=== PATIENT | male | born 1995 | race Caucasian/White ===

== ENCOUNTER 2018-03-28 01:48 | Emergency (ER) | payer OTHER ==
--- NOTE | 2018-03-28 02:43 | EDM.PDOC ---
ED HPI GENERAL MEDICAL PROBLEM - General Chief Complaint: Head Injury Stated Complaint: HIT HEAD HARD [id number] Time Seen by Provider: 03/28/18 01:55 Source of Information: Reports: Patient, Family History Limitations: Reports: No Limitations - History of Present Illness INITIAL COMMENTS - FREE TEXT/NARRATIVE: Ed with family reports up to [place] to urinate and "passed out" woke with head against bathtub and arm in toilet. felt sweaty. Next sat to have BM and passed out again. Denies hx of previous events ,brother has frequent fainting episodes. No diabetes hx. No recent URI or GI symptoms, Admits to a couple drinks earlier in day but "shouldn't have any value in what happened". Pain to right parietal area. Right Head Pain Score (Numeric/FACES): 6 - Related Data Allergies Allergy/AdvReac Type Severity Reaction Status Date / Time No Known Allergies Allergy Verified 03/28/18 01:56 Home Meds: Home Meds . [No Known Home Meds] 03/28/18 [History] Past Medical History - Past Health History Medical/Surgical History: Denies Medical/Surgical History Social & Family History - Tobacco Use Smoking Status *Q: Never Smoker Second Hand Smoke Exposure: No - Recreational Drug Use Recreational Drug Use: No ED ROS GENERAL - Review of Systems Review Of Systems: ROS reveals no pertinent complaints other than HPI. ED EXAM, HEAD INJURY - Physical Exam Exam: See Below Exam Limited By: No Limitations General Appearance: Alert, Mild Distress Head: Normocephalic, Scalp Tenderness. No: Scalp Abrasions, Scalp Hematoma, Lim's Sign, Raccoon Eyes Nexus Criteria: Posterior, Midline Cervical Tenderness. No: Evidence of Intoxication, Altered Level of Consciousness, Focal Neurological Deficit, Painful Distraction Injuries Eyes: Bilateral Eye: EOMI, PERRL Ears: Normal External Exam, Normal Canal, Normal TMs Nose: Normal Inspection, Normal Mucousa Throat/Mouth: Normal Inspection, Normal Lips, Normal Oropharynx Neck: Non-Tender, Full Range of Motion Respiratory: No Respiratory Distress, Lungs Clear, Normal Breath Sounds Cardiovascular: Normal Peripheral Pulses, Regular Rate, Rhythm GI/Abdominal Exam: Normal Bowel Sounds, Soft Back Exam: Normal Inspection, Full Range of Motion Neurologic: watch train inspector II-XII nml As Tested, Alert, Normal Mood/Affect, Oriented x 3. No: Motor Weakness, Sensory Deficit Skin: Normal Color, Warm/Dry - Kassandra Coma Score Best Eye Response (Orrum): (4) Open Spontaneously Best Verbal Response (Kassandra): (5) Oriented Best Motor Response (Kassandra): (6) Obeys Commands Course - Vital Signs Last Recorded V/S: Last Vital Signs Temp 98.1 F 03/28/18 01:52 Pulse 76 03/28/18 01:52 Resp 18 03/28/18 01:52 BP 134/65 03/28/18 01:52 Pulse Ox 100 03/28/18 01:52 Orthostatic Blood Pressure [ 123/81 Standing] Orthostatic Blood Pressure [ 121/74 Sitting] Orthostatic Blood Pressure [ 124/65 Supine] - Orders/Labs/Meds Orders: Active Orders 24 hr Category Date Time Status EKG Documentation Completion [RC] URGENT Care 03/28/18 02:27 Active Orthostatic Vital Signs [RC] ASDIRECTED Care 03/28/18 03:27 Active Labs: Laboratory Tests 03/28/18 03/28/18 Range/Units 02:35 02:35 WBC 6.1 (5.0-10.0) 10^3/uL RBC 5.29 (4.6-6.2) 10^6/uL Hgb 15.5 (14.0-18.0) g/dL Hct 44.3 (40.0-54.0) % MCV 83.7 (80-100) fL MCH 29.3 (27.0-34.0) pg MCHC 35.0 (33.0-35.0) g/dL Plt Count 188 (150-450) 10^3/uL Neut % (Auto) 59.7 (42.2-75.2) % Lymph % (Auto) 31.1 (20.5-50.1) % [place] % (Auto) 6.1 (2-8) % Eos % (Auto) 2.6 (1.0-3.0) % Baso % (Auto) 0.5 (0.0-1.0) % Sodium 138 (135-145) mmol/L Potassium 4.3 (3.6-5.0) mmol/L Chloride 101 (101-111) mmol/L Carbon Dioxide 28.0 (21.0-31.0) mmol/L Anion Gap 13.3 BUN 12 (7-18) mg/dL Creatinine 1.1 (0.6-1.3) mg/dL Est Cr Clr Drug Dosing 119.04 mL/min Estimated GFR (MDRD) > 60 BUN/Creatinine Ratio 10.90 Glucose 87 (74-105) mg/dL Calcium 9.5 (8.4-10.2) mg/dl Total Bilirubin 0.7 (0.2-1.0) mg/dL AST 32 (10-42) IU/L ALT 30 (10-60) IU/L Alkaline Phosphatase 65 (42-121) IU/L Total Protein 7.9 (6.7-8.2) g/dl Albumin 5.2 (3.2-5.5) g/dl Globulin 2.7 Albumin/Globulin Ratio 1.93 Ethyl Alcohol 14 mg/dL Meds: Medications Discontinued Medications Generic Name Dose Route Start Last Admin Trade Name Freq PRN Reason Stop Dose Admin Acetaminophen 650 mg 03/28/18 03:30 03/28/18 03:35 Tylenol PO 03/28/18 03:31 650 mg NOW ONE Administration - Radiology Interpretation Free Text/Narrative:: Head and C-Spine CT negative Departure - Departure Time of Disposition: 04:30 Disposition: Home, Self-Care 01 Condition: Good Clinical Impression: Syncope Qualifiers: Syncope type: unspecified Qualified Code(s): R55 - Syncope and collapse Contusion of head Qualifiers: Encounter type: initial encounter Contusion of head detail: unspecified part of head Qualified Code(s): S00.93XA - Contusion of unspecified part of head, initial encounter - Discharge Information *PRESCRIPTION DRUG MONITORING PROGRAM REVIEWED*: Not Applicable Instructions: Head Injury, Adult, Syncope, [id number] Referrals: PCP,None [Primary Care Provider] - Forms: ED Department Discharge Additional Instructions: Rest light activity today tylenol 650mg every 4 hours as needed for headache change positions slowly family to check every hour x 12 hours then every 2 x 12 hours urgent follow up change in status, confusion, repeated vomiting clinic follow up as needed - My Orders Last 24 Hours: My Active Orders 03/28/18 02:27 EKG Documentation Completion [RC] URGENT 03/28/18 03:27 Orthostatic Vital Signs [RC] ASDIRECTED - Assessment/Plan Last 24 Hours: My Active Orders 03/28/18 02:27 EKG Documentation Completion [RC] URGENT 03/28/18 03:27 Orthostatic Vital Signs [RC] ASDIRECTED
[2018-03-28 03:03] LABS: ANION GAP 13.3; CHLORIDE,CL 101 mmol/L (101-111); SODIUM,NA 138 mmol/L (135-145)
[2018-03-28] MEDS ORDERED: Acetaminophen 325 MG Tab PO ONE (03:30)
== END 2018-03-28 04:30 | disposition home or self-care (01) ==
LOC: DL.ED 01:48
DX: R55 Syncope and collapse (principal); S00.93XA Contusion of unspecified part of head, initial encounter; W22.8XXA Striking against or struck by other objects, initial encounter
CPT/HCPCS: 36415; 70450; 72125; 80053; 85025; 93005; 99284; A9270; G0480